=== PATIENT | female | born 1945 | race Caucasian/White ===

== ENCOUNTER 2023-06-02 14:07 | Emergency (ER) | payer MEDICARE, SELFPAY ==
[2023-06-02 14:13] VITALS: BP 188/87; PULSE 83; RESP 16; TEMP 36.8; O2SAT 99; BMI 19.2
--- NOTE | 2023-06-02 14:17 | DI.RAD.S_ITS ---
PROCEDURE: XR WRIST LT MIN 3V INDICATIONS: fall/deformity TECHNIQUE: 4 views of the wrist were acquired. COMPARISON: [facility], CR, HAND 3V LEFT, 07/23/2014, 15:19. FINDINGS: Bones: There is a distal radius fracture, with impaction and moderate dorsal displacement and moderate dorsal angulation. Comminuted fracture lines are seen, with intra-articular involvement. There is a mildly displaced ulnar styloid fracture. There is abnormal bony expansion with overlying lucency can be seen involving the 3rd metacarpal. Age-appropriate bony degenerative changes are seen. Soft tissues: No suspicious soft tissue calcifications. IMPRESSION: Distal radius fracture, with intra-articular involvement. There is a mildly displaced ulnar styloid fracture. Bony expansion can be seen involving the 3rd metacarpal. This process is progressed compared to 2014. Dictated by: Dg Oshea M.D. on 06/02/2023 at 14:06 Approved by: Dg Oshea M.D. on 06/02/2023 at 14:08
[2023-06-02 15:21] VITALS: PULSE 85; RESP 22; O2SAT 99
[2023-06-02 15:30] VITALS: PULSE 80; RESP 20; O2SAT 99
--- NOTE | 2023-06-02 15:40 | ED_ITS ---
HPI - General Adult General Chief complaint: Extremity Injury, Upper Stated complaint: sprained or broken lt wrist Time Seen by Provider: 06/02/23 15:19 Source: patient Mode of arrival: Family Vehicle History of Present Illness HPI narrative: 77-year-old female who is here for evaluation of a left wrist injury. Patient states that she fell and hit her left wrist. States she did not fall in the wrist. She initially thought that she just sprained it. It did occur just a couple hours prior to arrival here in the ER. No other injuries from the event. She is right-handed. Related Data Home Medications Medication Instructions Recorded Confirmed [super-lysine ] 1,000 mg PO QDAY ##0 10/16/16 06/02/23 Allergies Allergy/AdvReac Type Severity Reaction Status Date / Time No Known Drug Allergies Allergy Verified 06/02/23 14:18 Review of Systems Musculoskeletal Musculoskeletal: Reports system reviewed and no additional complaints, except as documented Integumentary/Breasts Skin/Breast: Reports system reviewed and no additional complaints, except as documented Neurologic Neurologic: Reports system reviewed and no additional complaints, except as d ocumented Patient History Social History Smoking Status: Never smoker Smoking Status: Never smoker alcohol intake frequency: holidays/special occasions only Substance Use Type: does not use Exam Initial Vital Signs Initial Vital Signs: Vital Signs Temperature 98.3 F 06/02/23 14:13 Pulse Rate 83 06/02/23 14:13 Respiratory Rate 16 06/02/23 14:13 Blood Pressure 188/87 H 06/02/23 14:13 Pulse Oximetry 99 06/02/23 14:13 Oxygen Delivery Method Room Air 06/02/23 14:13 Const General: cooperative and healthy appearing [facility] Head: normal to inspection and normocephalic Cardio Pulses: radial pulses present on the left Skin General: no rashes or lesions noted Neuro Sensory Exam: no sensory deficits noted Extrem Other: Left elbow unremarkable. Left shoulder unremarkable. Has deformity to the left wrist. Tender to palpation left wrist. Procedures Orthopedic Splinting/Casting Injury #1: Side: left Upper Extremity Injury Location: wrist Upper Extremity Immobilizer: sugar tong splint Post splinting neuro exam: no change Post splinting vascular exam: no change Placed by: Provider Course Orders Ordered: ED Orders 06/02/23 14:17 XR wrist LT min 3V Stat Vital Signs Vital signs: Vital Signs - 8 hr 06/02/23 14:13 Temperature 98.3 F Pulse Rate 83 Respiratory Rate 16 Blood Pressure 188/87 H Pulse Oximetry 99 Oxygen Delivery Method Room Air Medical Decision Making Imaging Data Extremity x-ray #1: Radiologist's Impression: PROCEDURE: XR WRIST LT MIN 3V INDICATIONS: fall/deformity TECHNIQUE: 4 views of the wrist were acquired. COMPARISON: [facility], [facility], HAND 3V LEFT, 07/23/2014, 15:19. FINDINGS: Bones: There is a distal radius fracture, with impaction and moderate dorsal displacement and moderate dorsal angulation. Comminuted fracture lines are seen, with intra-articular involvement. There is a mildly displaced ulnar styloid fracture. There is abnormal bony expansion with overlying lucency can be seen involving the 3rd metacarpal. Age-appropriate bony degenerative changes are seen. Soft tissues: No suspicious soft tissue calcifications. IMPRESSION: Distal radius fracture, with intra-articular involvement. There is a mildly displaced ulnar styloid fracture. Bony expansion can be seen involving the 3rd metacarpal. This process is progressed compared to 2014. [facility] Narrative Medical decision making narrative: Patient is neurovascularly intact. Has a left wrist fracture noted on the x- rays. Hematoma block was performed with 8 cc of 1% lidocaine. Patient tolerated the procedure well. Patient was given care instructions and return precautions. She expressed understanding and agreement. Discharge Plan Departure Patient Disposition: Home Clinical Impression: Left wrist fracture Instructions: DI for Wrist Fracture, How to Take Care of Your Splint Activity Restrictions/Additional Instructions: The splint that was placed today needs to stay on and stay clean and stay dry. You need to treat it like a cast. Tomorrow morning contact the orthopedic surgeons with the number provided below for a follow-up. Return to the [facility] for new or worsening symptoms. Prescriptions: No Action [super-lysine ] 1,000 mg PO QDAY Qty: 0 Referrals: Mouna Talavera ARNP [Primary Care Provider] - Javier Gonsalez MD [Physician] - Stand Alone Forms: Patient Portal/API
[2023-06-02 16:00] VITALS: PULSE 80; RESP 22; O2SAT 99
== END 2023-06-02 16:29 | disposition home or self-care (01) ==
PROVIDERS: Emergency Provider Emergency Medicine; Family Provider Nurse Practitioner; PCP Nurse Practitioner
DX: S52.572A Other intraarticular fracture of lower end of left radius, initial encounter for closed fracture (principal); W19.XXXA Unspecified fall, initial encounter
CPT/HCPCS: 29125; 73110; 99283